=== PATIENT | male | born 1995 ===

== ENCOUNTER 2023-11-15 16:56 | Inpatient (IN) | payer OTHER ==
[2023-11-15] VITALS (139 sets, daily range): BP systolic 105–128; BP diastolic 57–83; PULSE 72–97; TEMP 98.1–99.4; O2SAT 91–98
[~2023-11-15] VITALS: Ht 185.4 cm; Wt 99.8 kg
[2023-11-15] MEDS ORDERED: fentaNYL 50 MCG/ML 2 ML VIAL ONE (17:14)
[2023-11-15] MEDS ORDERED: Ondansetron 4 MG/2 ML VIAL ONE (17:15)
[2023-11-15] MEDS ORDERED: dexAMETHasone 10 MG/ML VIAL ONE (17:15)
[2023-11-15] MEDS ORDERED: Ketorolac 30 MG/ML VIAL ONE (17:15)
[2023-11-15] MEDS ORDERED: Lidocaine PF 2% (20 MG/ML) 5 ML VIAL ONE (17:15)
--- NOTE | 2023-11-15 17:15 | NUR ---
Pt arrived to ICU 5 from [facility] via EMS at this time. Pt transfered for throat abcess and will be having surgery this evening to have it drained. Pt alert and oriented. 20G PIV to left and right AC. Pt in possession of cellphone, wallet, keys, and wedding ring. Pt's will be taking home wallet. Pt oriented to room; instructed to call for assistance. Call light in reach.
[2023-11-15] MEDS ORDERED: NS 10 ML IV ONE (17:16)
[2023-11-15] MEDS ORDERED: Ondansetron 4 MG/2 ML VIAL IV PRN ×3 (17:30→19:00)
[2023-11-15] MEDS ORDERED: NS 1,000 ML IV SCH (17:30)
[2023-11-15] MEDS ORDERED: HYDROmorphone 2 MG/1 ML VIAL IV PRN ×2 (17:45→19:00)
[2023-11-15] MEDS ORDERED: droPERidol 2.5 MG/ML 2 ML VIAL IV PRN ×2 (17:45→19:00)
[2023-11-15] MEDS ORDERED: fentaNYL 50 MCG/ML 2 ML VIAL IV PRN ×2 (17:45→19:00)
[2023-11-15] MEDS ORDERED: hydrALAZINE 20 MG/ML 1 ML VIAL IV PRN (17:45)
[2023-11-15] MEDS ORDERED: LR 1,000 ML IV SCH (17:45)
[2023-11-15] MEDS ORDERED: Succinylcholine PF 100 MG/5 ML SYRINGE/POLY AMP IV ONE (17:59)
--- NOTE | 2023-11-15 18:02 | NUR ---
Pt taken back to surgery at this time for drainage of abcess. Pt's family aware.
[2023-11-15] MEDS ORDERED: LEXAPRO20 MG PO (18:09)
[2023-11-15] MEDS ORDERED: WELLBUTRIN XL150 MG PO (18:09)
[2023-11-15] MEDS ORDERED: Glycopyrrolate 0.2 MG/ML 1 ML VIAL ONE (18:29)
[2023-11-15] MEDS ORDERED: Meperidine 50 MG/ML 1 ML VIAL IV PRN (19:00)
[2023-11-15] MEDS ORDERED: Morphine 4 MG/ML VIAL IV PRN (19:00)
[2023-11-15] MEDS ORDERED: oxyCODONE Oral Soln 5 MG/5 ML UD PO PRN (19:15)
--- NOTE | 2023-11-15 20:18 | NUR ---
1910: RETURNED FROM OR AT THIS TIME, VSS, ST LOW 100S, LRS HANGING ON ROLLER CLAMP. WILL TAKE REPORT AND D/C. DR CHRISTIANSON AT THE BEDSIDE TALKING WITH PT AND . NO C/O PAIN AT THIS TIME. A&O X3. AIRWAY CLEAR. PT C/O BEING HUNGRY BUT, EXPLAINED TO HIM THAT WE NEED TO WAIT FOR AWHILE AFTER SURGERY TO AVOID NAUSEA/VOMITTING. PT ON FULL LIQUIDS .
[2023-11-16] VITALS (30 sets, daily range): BP systolic 99–112; BP diastolic 58–62; PULSE 54–62; TEMP 97.7–97.9; O2SAT 94–95
--- NOTE | 2023-11-16 07:45 | NUR ---
Resting in bed; alert and oriented and in no distress. Throat assessed and no redness or swelling observed. Denies any difficulty swallowing or other concerns. Dr. Anguiano visited with patient and will discharge today. Call light left within reach.
[2023-11-16] MEDS ORDERED: AMOXICILLIN 8751 TAB PO (07:51)
[2023-11-16] MEDS ORDERED: PREDNISONE50 MG PO (07:51)
[2023-11-16 08:51] LABS: BASO % 0.1 % (0.0-2.0); GRAN # 9.7 K/mm3 (1.4-6.5); GRAN % 87.3 % (42.2-75.2); HEMATOCRIT 35.1 % (42.0-52.0); HEMOGLOBIN 11.8 g/dl (13.5-18.0); LYMPH # 1.1 K/mm3 (1.2-3.4); LYMPH % 9.8 % (20.0-51.0); MEAN CELL VOLUME 89 fl (80.0-100.0); MEAN CORPUSCULAR HEMOGLOBIN 30 pg (27-31); MEAN CORPUSCULAR HGB CONC 34 g/dl (33.0-37.0); MEAN PLATELET VOLUME 9.4 fl (7.4-10.4); MONO # 0.3 K/mm3 (0.1-0.6); MONO % 2.3 % (1.7-9.3); PLATELET COUNT 278 K/mm3 (130-400); RED BLOOD COUNT 3.93 M/mm3 (4.20-5.60); REDCELL DISTRIBUTION WIDTH-CV 14.1 % (11.5-14.5)
[2023-11-16 08:57] LABS: CALCIUM 9.2 mg/dL (8.4-10.2); CREATININE, serum 0.8 mg/dL (0.72-1.25); POTASSIUM 4.2 mmol/L (3.5-4.5)
--- NOTE | 2023-11-16 10:26 | NUR ---
dye house worker attended clinical rounding and was informed pt will discharge today. Pt reports he lives in [place] with his and child. [place] [employer] He obtains medications from the [facility] outpatient pharmacy with no difficulties. He is independent with ADLS and uses no DME. Pt reports he has no DPOA-HC, but his legal NOK is , [place] [phone]. Pt intends to return home today. Discharge Plan: Home
--- NOTE | 2023-11-16 10:38 | NUR ---
Discharge instructions and packet reviewed with patient. All questions and concerns addressed at this time. Alert and oriented and in no distress upon discharge.
== END 2023-11-16 10:37 | disposition home or self-care (01) | DRG 159 ==
LOC: ICU 16:56
PROVIDERS: Otolaryngology; ADMIT Internal Medicine
PROC: 0C9 Mouth and Throat, Drainage (ICD-10-PCS; principal; 2023-11-15 18:45)
DX: K14.0 Glossitis (principal); F41.9 Anxiety disorder, unspecified; F32.A Depression, unspecified; R13.10 Dysphagia, unspecified; F43.23 Adjustment disorder with mixed anxiety and depressed mood; M54.2 Cervicalgia; J02.9 Acute pharyngitis, unspecified; F98.8 Other specified behavioral and emotional disorders with onset usually occurring in childhood and adolescence; Z23 Encounter for immunization; Z88.1 Allergy status to other antibiotic agents; Z90.49 Acquired absence of other specified parts of digestive tract; Z90.89 Acquired absence of other organs; Z87.891 Personal history of nicotine dependence; Z79.899 Other long term (current) drug therapy
CPT/HCPCS: J0295; J0330; J0690; J1100; J1885; J2405; J2704; J3010; J7030; J7120